=== PATIENT | female | born 1980 | race American Indian/Alaskan Native ===

== ENCOUNTER 2017-12-15 15:57 | Emergency (ER) | payer MEDICARE ==
[2017-12-15] MEDS ORDERED: KEPPRA 1,000 MG/NS 0.75% 100ML 1,000 MG/100 ML BAG IV ONE (16:14)
[2017-12-15] MEDS ORDERED: NACL 0.9% 1000 ML 1,000 ML IV ONE (16:14)
[2017-12-15 16:15] VITALS: BP 104/51
--- NOTE | 2017-12-15 16:18 | Emergency Department Report ---
ED Seizure HPI - General Chief Complaint: Seizure Stated Complaint: AMS Time Seen by Provider: 12/15/17 16:07 Source: EMS Mode of arrival: Stretcher Limitations: Altered Mental Status, Physical Limitation - History of Present Illness Initial Comments: Patient is a 37 years old female with history of end-stage renal disease on hemodialysis Saturday, Saturday and Saturday, recent diagnosis of seizure but patient is not on any seizure medicine. Patient brought to the ER via EMS. The patient had one episode of tonic clonic generalized seizure. EMS is that it that patient seizure stopped before getting any medication. Patient initial blood pressure was low according to EMS this was 70/30. Patient received 500 bolus of normal saline in blood pressure went up to 90/50. Patient is obtunded and is still postictal. MD Complaint: seizure -: This afternoon Description of Episode: loss of consciousness, tonic-clonic movement, post- event confusion Witnessed:: Yes Seizure History: known seizure disorder Place: home Possible Precipitating Event: none Associated Symptoms: denies other symptoms - Related Data Home Medications Medication Instructions Recorded Confirmed Last Taken Carvedilol [Coreg] 25 mg PO BID 01/20/15 01/20/15 01/17/15 Cinacalcet [Sensipar] 30 mg PO DAILY 01/20/15 01/20/15 01/17/15 Dialyvite 800-Zinc 15 mg Tab 1 tab PO DAILY 01/20/15 01/20/15 01/17/15 Dicyclomine [Bentyl] 80 mg PO DAILY 01/20/15 01/20/15 01/17/15 Gabapentin [Neurontin] 300 mg PO DAILY 01/20/15 01/20/15 01/17/15 Insulin Glargine [Lantus VIAL] 40 unit SC DAILY 01/20/15 01/20/15 01/17/15 LORazepam [Ativan] 1 mg PO PRN PRN 01/20/15 01/20/15 01/16/15 NIFEdipine XL [Procardia Xl] 90 mg PO DAILY 01/20/15 01/20/15 01/17/15 NovoLOG Mix 70/30 VIAL 30 unit SC ACHS 01/20/15 01/20/15 01/17/15 Pantoprazole [Protonix TAB] 10 mg PO DAILY 01/20/15 01/20/15 01/17/15 Venlafaxine HCl [Effexor Xr] 75 mg PO DAILY 01/20/15 01/20/15 01/17/15 cloNIDine-TTS PATCH [Catapres-Tts 1 patch TRANSDERMA QWEEK 01/20/15 01/20/1511/23 Patch] medroxyPROGESTERone ACETATE 10 mg PO DAILY 01/20/15 01/20/15 01/17/15 [Provera] traMADol 50 mg PO PRN PRN 01/20/15 01/20/15 12/17/14 Previous Rx's Medication Instructions Recorded Last Taken Type levETIRAcetam [Keppra TAB] 500 mg PO BID #60 tablet 12/15/17 Unknown Rx levoFLOXacin [Levaquin TAB] 500 mg PO QDAY #7 tablet 12/15/17 Unknown Rx Allergies Allergy/AdvReac Type Severity Reaction Status Date / Time cefazolin sodium [From Anc] AdvReac Severe Swelling Verified 01/20/15 13:45 lisinopril AdvReac Severe cough Verified 01/21/15 07:34 severe ED Review of Systems ROS: Stated complaint: AMS Other details as noted in HPI Comment: All other systems reviewed and negative Constitutional: denies: chills, fever Respiratory: denies: cough, shortness of breath Cardiovascular: denies: chest pain, palpitations Gastrointestinal: denies: abdominal pain, nausea, vomiting Musculoskeletal: denies: back pain Neurological: denies: headache, weakness, numbness, paresthesias, confusion, abnormal gait ED Past Medical Hx - Past Medical History Hx Hypertension: Yes Hx Diabetes: Yes Hx Renal Disease: Yes Hx Seizures: Yes - Social History Smoking Status: Never Smoker - Medications Home Medications: Home Medications Medication Instructions Recorded Confirmed Last Taken Type Carvedilol [Coreg] 25 mg PO BID 01/20/15 01/20/15 01/17/15 History Cinacalcet [Sensipar] 30 mg PO DAILY 01/20/15 01/20/15 01/17/15 History Dialyvite 800-Zinc 15 mg Tab 1 tab PO DAILY 01/20/15 01/20/15 01/17/15 History Dicyclomine [Bentyl] 80 mg PO DAILY 01/20/15 01/20/15 01/17/15 History Gabapentin [Neurontin] 300 mg PO DAILY 11/02/2201/20/15 01/17/15 History Insulin Glargine [Lantus VIAL] 40 unit SC DAILY 01/20/15 01/20/15 01/17/15 History LORazepam [Ativan] 1 mg PO PRN PRN 01/20/15 01/20/15 01/16/15 History NIFEdipine XL [Procardia Xl] 90 mg PO DAILY 01/20/15 01/20/15 01/17/15 History NovoLOG Mix 70/30 VIAL 30 unit SC ACHS 01/20/15 01/20/15 01/17/15 History Pantoprazole [Protonix TAB] 10 mg PO DAILY 01/20/15 01/20/15 01/17/15 History Venlafaxine HCl [Effexor Xr] 75 mg PO DAILY 01/20/15 01/20/15 01/17/15 History cloNIDine-TTS PATCH [Catapres-Tts 1 patch TRANSDERMA QWEEK 01/20/15 01/20/1511/23 History Patch] medroxyPROGESTERone ACETATE 10 mg PO DAILY 01/20/15 01/20/15 01/17/15 History [Provera] traMADol 50 mg PO PRN PRN 01/20/15 01/20/15 12/17/14 History levETIRAcetam [Keppra TAB] 500 mg PO BID #60 tablet 12/15/17 Unknown Rx levoFLOXacin [Levaquin TAB] 500 mg PO QDAY #7 tablet 12/15/17 Unknown Rx ED Physical Exam - General Limitations: Altered Mental Status, Physical Limitation General appearance: alert, in no apparent distress - Head Head exam: Present: atraumatic, normocephalic, normal inspection - Eye Eye exam: Present: normal appearance, PERRL - ENT ENT exam: Present: normal exam, normal orophraynx, mucous membranes moist - Neck Neck exam: Present: normal inspection, full ROM. Absent: tenderness, meningismus, lymphadenopathy, thyromegaly - Respiratory Respiratory exam: Present: normal lung sounds bilaterally. Absent: respiratory distress, wheezes, rales, rhonchi, chest wall tenderness, accessory muscle use, decreased breath sounds, prolonged expiratory - Cardiovascular Cardiovascular Exam: Present: regular rate, normal rhythm, normal heart sounds - GI/Abdominal GI/Abdominal exam: Present: soft, normal bowel sounds. Absent: distended, tenderness, guarding, rebound, rigid, organomegaly, mass, bruit, pulsatile mass - Extremities Exam Extremities exam: Present: normal inspection, full ROM, normal capillary refill , pedal edema (right leg lymphedema, chronic.) - Back Exam Back exam: Present: normal inspection, full ROM - Neurological Exam Neurological exam: Present: alert, oriented X3, CN II-XII intact, reflexes normal - Skin Skin exam: Present: warm, intact, normal color ED Course Vital Signs 12/15/17 12/15/17 16:14 16:16 Temperature 99 F Pulse Rate 84 Respiratory 19 19 Rate Blood Pressure 104/51 [Right] O2 Sat by Pulse 100 100 Oximetry - Reevaluation(s) Reevaluation #1: 12/15/17 18:58 Patient's sister arrived to the room and able to give more information. Patient is sister stated that patient was admitted to [facility] 2 weeks ago and she stayed for one week and patient was intubated at that time. He stated that all the symptoms happened after she had a fall 2 weeks ago and she was told that she had a concussion. Patient's sister is asking to transfer the patient to [facility] since all her doctors over there. ED Medical Decision Making - Lab Data Result diagrams: 12/15/17 16:46 12/15/17 16:46 - Radiology Data Radiology results: report reviewed CT brain is negative for acute finding. - Medical Decision Making Patient is a 37 years old female with history of end-stage renal disease on hemodialysis Saturday, Saturday and Saturday, recent diagnosis of seizure but patient is not on any seizure medicine. Patient brought to the ER via EMS. The patient had one episode of tonic clonic generalized seizure. EMS is that it that patient seizure stopped before getting any medication. Patient initial blood pressure was low according to EMS this was 70/30. Patient received 500 bolus of normal saline in blood pressure went up to 90/50. Patient is obtunded and is still postictal. Patient received 1 g of Keppra in the ER. Patient observed, no seizure activities seen. Patient's CT brain is negative for acute finding. The patient now is alert oriented 3 and she is asking that she wanted to go to the bathroom. 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 she stated that she is back to her baseline. I believe which she had most likely a grand mal seizure and patient was postictal. I started on Keppra 500 mg twice a day and I strongly advised the patient and her sister to follow-up tomorrow with her neurologist at [place]. Both patient and her sister understood the instructions very well. I also advised them to return to the ER if she started having more seizure. Critical Care Time: Yes Critical care time in (mins) excluding proc time.: 30 Critical care attestation.: If time is entered above; I have spent that time in minutes in the direct care of this critically ill patient, excluding procedure time. ED Disposition Clinical Impression: Altered mental status, Seizure Disposition: DC-01 TO HOME OR SELFCARE Is pt being admited?: No Condition: Stable Instructions: Altered Mental Status (ED), Recurrent Seizures Adult (ED) Additional Instructions: Follow-up he is your neurologist tomorrow morning. Please return to the ER if symptoms return. Prescriptions: levETIRAcetam [Keppra TAB] 500 mg PO BID #60 tablet levoFLOXacin [Levaquin TAB] 500 mg PO QDAY #7 tablet Referrals: PRIMARY CARE, [Primary Care Provider] - 24 Hours
[2017-12-15 17:17] LABS: Calcium 8.6 mg/dL (8.4-10.2)
[2017-12-15 17:21] LABS: Hematocrit 33.6 % (30.3-42.9); Hemoglobin 10.3 gm/dl (10.1-14.3); Mean Corpuscular HGB Conc 31 % (30-34); Mean Corpuscular Hemoglobin 28 pg (28-32); Mean Corpuscular Volume 90 fl (79-97); Platelet Count 232 K/mm3 (140-440); Red Blood Count 3.75 M/mm3 (3.65-5.03)
[2017-12-15 17:22] LABS: Red Cell Distribution Width 20.5 % (13.2-15.2)
[2017-12-15] MEDS ORDERED: LEVAQUIN 500MG/100ML 500 MG/100 ML BAG IV ONE (17:38)
--- NOTE | 2017-12-15 18:16 | XRay Report ---
FINAL REPORT PROCEDURE: Chest. TECHNIQUE: Portable AP view. HISTORY: Hypertension. COMPARISON: No prior studies are available for comparison. FINDINGS: The heart and mediastinum appear normal. The lungs are clear and well expanded. There are no pleural effusions. The soft tissues are unremarkable. Median sternotomy wires are present. IMPRESSION: No evidence of acute disease.
[2017-12-15] MEDS ORDERED: HumuLIN R IV ONE (18:57)
[2017-12-15] MEDS ORDERED: D50W (25GM) Syringe IV ONE (18:57)
--- NOTE | 2017-12-15 19:46 | Cat Scan Report ---
FINAL REPORT PROCEDURE: CT head without contrast. TECHNIQUE: Computerized tomography of the head was performed without contrast material. HISTORY: Altered mental status, seizure. COMPARISON: No prior studies are available for comparison. FINDINGS: The ventricles are normal in size. The villavicencio matter and white matter appear normal. There are no mass lesions. There is no intracranial hemorrhage. There are no signs of acute infarction. The calvarium appears intact. The mastoid air cells are clear. There is mucosal thickening in the right sphenoid sinus. IMPRESSION: Normal study of the brain.
[2017-12-15] MEDS ORDERED: ZOFRAN IV ONE (20:55)
[2017-12-15] MEDS ORDERED: ZOFRAN ONE (20:56)
== END 2017-12-15 21:10 | disposition home or self-care (01) ==
LOC: ED 15:57
DX: G40.909 Epilepsy, unspecified, not intractable, without status epilepticus (principal); R41.82 Altered mental status, unspecified; I12.0 Hypertensive chronic kidney disease with stage 5 chronic kidney disease or end stage renal disease; E11.22 Type 2 diabetes mellitus with diabetic chronic kidney disease; N18.6 End stage renal disease; Z99.2 Dependence on renal dialysis; Z79.4 Long term (current) use of insulin; Z88.8 Allergy status to other drugs, medicaments and biological substances
CPT/HCPCS: 36415; 70450; 71045; 80048; 82962; 84703; 85027; 87040; 87076; 87186; 96365; 96366; 96368; 96375; 99285; J1953; J1956; J2405; J7030; 99291; J1815

== ENCOUNTER 2020-10-04 11:21 | Emergency (ER) | payer MEDICARE ==
--- NOTE | 2020-10-04 11:56 | Emergency Department Report ---
ED General Adult HPI - General Stated complaint: CARDIAC ARREST Time Seen by Provider: 10/04/20 11:51 - History of Present Illness Initial comments: Patient presents to the emergency department via EMS receiving chest compressions and BVM. Per EMS patient was last seen normal at 6 AM this morning. Upon arrival the patient was asystole and they were not able to open the patient's mouth intubated. Chest compressions were begun and patient was given ACLS certified medications. -: unknown Severity scale (0 -10): 0 Improves with: none Worsens with: none Associated Symptoms: denies other symptoms Treatments Prior to Arrival: none - Related Data Home Medications Medication Instructions Recorded Confirmed Last Taken Cinacalcet [Sensipar] 30 mg PO DAILY 01/20/15 01/20/15 01/17/15 Dialyvite 800-Zinc 15 mg Tab 1 tab PO DAILY 01/20/15 01/20/15 01/17/15 Dicyclomine [Bentyl] 80 mg PO DAILY 01/20/15 01/20/15 01/17/15 Gabapentin [Neurontin] 300 mg PO DAILY 01/20/15 01/20/15 01/17/15 Insulin Glargine [Lantus VIAL] 40 unit SC DAILY 01/20/15 01/20/15 01/17/15 LORazepam [Ativan] 1 mg PO PRN PRN 01/20/15 01/20/15 01/16/15 NIFEdipine XL [Procardia Xl] 90 mg PO DAILY 01/20/15 01/20/15 01/17/15 NovoLOG Mix 70/30 VIAL 30 unit SC ACHS 01/20/15 01/20/15 01/17/15 Pantoprazole [Protonix TAB] 10 mg PO DAILY 01/20/15 01/20/15 01/17/15 Venlafaxine HCl [Effexor Xr] 75 mg PO DAILY 01/20/15 01/20/15 01/17/15 carvediloL [Coreg] 25 mg PO BID 01/20/15 01/20/15 01/17/15 cloNIDine-TTS PATCH [Catapres-Tts 1 patch TRANSDERMA QWEEK 01/20/15 01/20/15 01/17/15 0.3mg Patch] medroxyPROGESTERone ACETATE 10 mg PO DAILY 01/20/15 01/20/15 01/17/15 [Provera] traMADol 50 mg PO PRN PRN 01/20/15 01/20/15 12/17/14 Previous Rx's Medication Instructions Recorded Last Taken Type levETIRAcetam [Keppra TAB] 500 mg PO BID #60 tablet 12/15/17 Unknown Rx levoFLOXacin [Levaquin TAB] 500 mg PO QDAY #7 tablet 12/15/17 Unknown Rx Allergies Allergy/AdvReac Type Severity Reaction Status Date / Time cefazolin sodium [From Ancef] AdvReac Severe Swelling Verified 01/20/15 13:45 lisinopril AdvReac Severe cough Verified 01/21/15 07:34 severe ED Review of Systems ROS: Stated complaint: CARDIAC ARREST Other details as noted in HPI Comment: Unobtainable due to pts medical conditions ED Past Medical Hx - Past Medical History Hx Hypertension: Yes Hx Diabetes: Yes Hx Renal Disease: Yes Hx Seizures: Yes - Social History Smoking Status: Never Smoker - Medications Home Medications: Home Medications Medication Instructions Recorded Confirmed Last Taken Type Cinacalcet [Sensipar] 30 mg PO DAILY 01/20/15 01/20/15 01/17/15 History Dialyvite 800-Zinc 15 mg Tab 1 tab PO DAILY 01/20/15 01/20/15 01/17/15 History Dicyclomine [Bentyl] 80 mg PO DAILY 01/20/15 01/20/15 01/17/15 History Gabapentin [Neurontin] 300 mg PO DAILY 01/20/15 01/20/15 01/17/15 History Insulin Glargine [Lantus VIAL] 40 unit SC DAILY 01/20/15 01/20/15 01/17/15 History LORazepam [Ativan] 1 mg PO PRN PRN 01/20/15 01/20/15 01/16/15 History NIFEdipine XL [Procardia Xl] 90 mg PO DAILY 01/20/15 01/20/15 01/17/15 History NovoLOG Mix 70/30 VIAL 30 unit SC ACHS 01/20/15 01/20/15 01/17/15 History Pantoprazole [Protonix TAB] 10 mg PO DAILY 01/20/15 01/20/15 01/17/15 History Venlafaxine HCl [Effexor Xr] 75 mg PO DAILY 01/20/15 01/20/1515 History carvediloL [Coreg] 25 mg PO BID 01/20/15 01/20/15 01/17/15 History cloNIDine-TTS PATCH [Catapres-Tts 1 patch TRANSDERMA QWEEK 01/20/15 01/20/15 History 0.3mg Patch] medroxyPROGESTERone ACETATE 10 mg PO DAILY 01/20/15 01/20/15 01/17/15 History [Provera] traMADol 50 mg PO PRN PRN 01/20/15 01/20/15 12/17/14 History levETIRAcetam [Keppra TAB] 500 mg PO BID #60 tablet 12/15/17 Unknown Rx levoFLOXacin [Levaquin TAB] 500 mg PO QDAY #7 tablet 12/15/17 Unknown Rx ED Physical Exam - General General appearance: other (Asystole) - Head Head exam: Present: normocephalic - ENT ENT exam: Present: mucous membranes dry, other (Unable to open the patient's mouth; rigors) - Respiratory Respiratory exam: Present: other (Breath sounds with BVM) - Cardiovascular Cardiovascular Exam: Present: other (Asystole) - GI/Abdominal GI/Abdominal exam: Present: soft. Absent: distended - Extremities Exam Extremities exam: Present: other (Right lower extremity prosthesis; edema left lower extremity) - Neurological Exam Neurological exam: Present: other (GCS: 3) - Psychiatric Psychiatric exam: Present: other (Unable to assess due to the patient's cond ition) - Skin Skin exam: Present: warm, dry ED Medical Decision Making - Medical Decision Making Upon arrival chest compressions continued BVM continued Time of 11:23 AM Spoke to the patient's sister who states that the patient was not able to complete dialysis yesterday due to her screaming out at that time she states she try to get her sister come to the hospital but she would not go. The patient's daughter states over the last 2 weeks her sister has not felt well. Critical care attestation.: If time is entered above; I have spent that time in minutes in the direct care of this critically ill patient, excluding procedure time. ED Disposition Clinical Impression: Cardiac arrest Disposition: DC-20 Is pt being admited?: No Does the pt Need Aspirin: No Referrals: PRIMARY CARE, [Primary Care Provider] - 3-5 Days
[2020-10-04] MEDS ORDERED: ONDANSETRON 4 MG ODT TAB PO ONE (16:13)
== END 2020-10-04 17:53 ==
LOC: ED 11:21
DX: I46.9 Cardiac arrest, cause unspecified (principal); I12.9 Hypertensive chronic kidney disease with stage 1 through stage 4 chronic kidney disease, or unspecified chronic kidney disease; E11.22 Type 2 diabetes mellitus with diabetic chronic kidney disease; N18.9 Chronic kidney disease, unspecified; R56.9 Unspecified convulsions; Z88.1 Allergy status to other antibiotic agents; Z88.8 Allergy status to other drugs, medicaments and biological substances
CPT/HCPCS: 92950; 99285